=== PATIENT | male | born 1940 | race Caucasian/White ===

== ENCOUNTER 2024-05-20 19:14 | Emergency (ER) | payer MEDICARE, OTHER ==
[2024-05-20 19:23] VITALS: TEMP 98.2; BMI 27.0
[2024-05-20] MEDS ORDERED: ACETAMINOPHEN INJECTION 100 ML ONE (19:59)
[2024-05-20] MEDS ORDERED: ONDANSETRON 4 MG/2 ML VIAL ONE (20:16)
[2024-05-20] MEDS: ONDANSETRON 4 MG/2 ML VIAL IVPUSH ONE (20:23)
[2024-05-20] MEDS: ACETAMINOPHEN 1000 MG/100 ML BAG IVPB ONE (20:23)
[2024-05-20 20:29] LABS: BASO % 0.7 % (0-2.0); EOS % 1.5 % (0-4.5); HEMATOCRIT 39.6 % (35.4-49); LYMPH % 21.9 % (8-40); MCH 29.1 pg (25.7-33.7); MCHC 32.9 g/dl (32.0-35.9); MEAN CELL VOLUME 88.4 fl (80-96); MEAN PLT VOLUME 8.7 fl (7.5-11.1); MONO % 6.7 % (3.8-10.2); NEUT % 69.2 % (42.8-82.8); PLATELET COUNT 179 10^3/uL (134-434); RBC 4.48 M/mm3 (4.00-5.60); RDW 14.5 % (11.9-15.9); WHITE BLOOD COUNT 6.5 K/mm3 (4.0-10.0)
[2024-05-20] MEDS ORDERED: MORPHINE SULFATE 2 MG/ML SYRINGE ONE (20:31)
[2024-05-20 20:33] LABS: EPI CELLS 3 /uL (0-25.1); HYALINE CASTS 0 /uL (0-3.1); PH,URINE 7.5 (5.0-8.0); URINE APPEARANCE CLEAR; URINE BACTERIA 6 /uL (0-1359); URINE BILIRUBIN NEGATIVE (NEGATIVE); URINE COLOR YELLOW; URINE GLUCOSE (UA) NEGATIVE (NEGATIVE); URINE KETONE 1+ (NEGATIVE); URINE LEUK ESTERASE NEGATIVE (NEGATIVE); URINE NITRITE NEGATIVE (NEGATIVE); URINE PROTEIN 1+ (NEGATIVE); URINE RBC 11 /uL (0-23.9); URINE UROBILINOGEN 0.2 mg/dL (0.2-1.0); URINE WBC 3 /uL (0-25.8)
[2024-05-20 20:37] LABS: POTASSIUM 3.9 mmol/L (3.5-5.1)
[2024-05-20] MEDS: morphine CARPU-JECT 2 MG/1 ML DISP.SYRIN IVPUSH ONE (20:37)
[2024-05-20 20:39] LABS: CALCIUM 9.4 mg/dL (8.5-10.1)
[2024-05-20 20:40] LABS: ALBUMIN 3.9 g/dl (3.4-5.0); BLOOD UREA NITROGEN 14.7 mg/dL (7-18); MAGNESIUM 1.3 mg/dL (1.8-2.4)
[2024-05-20 20:45] LABS: BILIRUBIN,TOTAL 0.8 mg/dL (0.2-1); TOT PROT 7.5 g/dl (6.4-8.2)
[2024-05-20] MEDS ORDERED: MAGNESIUM SULFATE IN WATER 2 GM/50 ML IVPB IVPB ONE (21:47)
[2024-05-20] MEDS: MAGNESIUM SULF 50% (8.12 MEQ/2 ML-1 GM VIAL) IVPB ONE (21:53)
[2024-05-20 23:35] LABS: POTASSIUM 4.6 mmol/L (3.5-5.1)
[2024-05-20 23:36] LABS: CALCIUM 9.1 mg/dL (8.5-10.1)
[2024-05-20 23:37] LABS: BLOOD UREA NITROGEN 13.1 mg/dL (7-18)
[2024-05-20 23:40] LABS: CREATININE 0.8 mg/dL (0.55-1.3)
[2024-05-21 00:53] VITALS: BP 168/97; PULSE 84; RESP 22
[2024-05-21] MEDS ORDERED: TAMSULOSIN HCL 0.4 MG CAP ONE (01:07)
[2024-05-21] MEDS: TAMSULOSIN HCL 0.4 MG CAP PO ONE (01:17)
== END 2024-05-21 01:28 | disposition home or self-care (01) ==
LOC: JER 19:14
PROC: 3E033NZ Introduction of Analgesics, Hypnotics, Sedatives into Peripheral Vein, Percutaneous Approach (ICD-10-PCS; principal; 2024-05-20)
PROC: 3E033GC Introduction of Other Therapeutic Substance into Peripheral Vein, Percutaneous Approach (ICD-10-PCS; 2024-05-20)
PROC: 3E033NZ Introduction of Analgesics, Hypnotics, Sedatives into Peripheral Vein, Percutaneous Approach (ICD-10-PCS; 2024-05-20)
PROC: 3E033GC Introduction of Other Therapeutic Substance into Peripheral Vein, Percutaneous Approach (ICD-10-PCS; 2024-05-20)
DX: N20.0 Calculus of kidney (principal)
CPT/HCPCS: 36415; 74174-TC; 80048; 80053; 81003; 83735; 84484; 85025; 87086; 93005; 93010; 96374; 96375; 99285-25; J0131